=== PATIENT | female | born 1995 | race Caucasian/White ===

== ENCOUNTER 2018-06-02 12:03 | Inpatient (IN) | payer MEDICAID, OTHER ==
[2018-06-02] MEDS ORDERED: LIDOCAINE 1% (MPF) 5 ML VIAL INJ (14:30)
[2018-06-02] MEDS ORDERED: CEFTRIAXONE 1 GM INJ IM (14:30)
[2018-06-02 14:52] LABS: ADD MAN DIFF? NO
[2018-06-02] MEDS: SOD CHLORIDE 0.9% 1,000 ML IV ×2 (14:57→19:36)
[2018-06-02 14:58] LABS: ABNORMAL IP MESSAGE 1; BASOPHILS % 0.2 % (0.0-2.0); HEMATOCRIT 38.8 % (37.0-47.0); HEMOGLOBIN 13.3 g/dl (12.0-16.0); LYMPHOCYTES # 0.6 10^3/ul (0.8-2.9); MEAN CORPUSCULAR HEMOGLOBIN 28.9 pg (29.0-33.0); MEAN CORPUSCULAR HGB CONC 34.3 g/dl (32.0-37.0); MEAN CORPUSCULAR VOLUME 84.3 fl (82.0-101.0); MEAN PLATELET VOLUME 11.7 fl (7.4-10.4); MONOCYTE # 0.9 10^3/ul (0.3-0.9); MONOCYTES % 6.3 % (0.0-11.0); NEUTROPHIL # 12.9 10^3/ul (1.6-7.5); NEUTROPHILS % 88.9 % (39.0-77.0); PLATELET COUNT 158 10^3/UL (140-415); RED CELL DISTRIBUTION WIDTH 13.5 % (11.5-14.5)
[2018-06-02 14:58] LABS: WHITE BLOOD COUNT 14.5 10^3/ul (4.8-10.8)
[2018-06-02 15:01] LABS: POSITIVE DIFF @See below
[2018-06-02] MEDS: CEFTRIAXONE 1 GM/50 ML (PMX) 50 ML IVPB (15:09)
[2018-06-02 15:18] LABS: LACTIC ACID 1.8 mmol/L (0.5-2.0)
[2018-06-02 15:19] LABS: ADD UMIC YES; UR ASCORBIC ACID NEGATIVE (NEGATIVE); UR BACTERIA FEW /HPF (NONE SEEN); UR BILIRUBIN (Dip) NEGATIVE (NEGATIVE); UR BLOOD (Dip) 1+ mg/dL (NEGATIVE); UR CLARITY CLOUDY (CLEAR); UR COLOR YELLOW (YELLOW); UR GLUCOSE (Dip) NEGATIVE (NEGATIVE); UR KETONES (Dip) 2+ mg/dL (NEGATIVE); UR LEUKOCYTE ESTERASE (Dip) 3+ Leu/ul (NEGATIVE); UR MUCUS MODERATE /HPF (NONE SEEN); UR NITRITE (Dip) POSITIVE (NEGATIVE); UR NONSQUAMOUS EPITHELIAL CELL 1 /HPF (NONE SEEN); UR RBC 5 /HPF (0-5); UR SPECIFIC GRAVITY (Dip) 1.012 (1.003-1.030); UR SQUAMOUS EPITHELIAL CELL MODERATE /HPF (FEW); UR TOTAL PROTEIN (Dip) 1+ mg/dl (NEGATIVE); UR UROBILINOGEN (Dip) NEGATIVE (NEGATIVE); UR WBC 73 /HPF (0-5)
[2018-06-02 15:44] LABS: ALANINE AMINOTRANSFERASE 19 IU/L (13-69); ALBUMIN 4.4 g/dl (3.3-4.9); ALBUMIN/GLOBULIN RATIO 1.29; ALKALINE PHOSPHATASE 134 IU/L (42-121); ANION GAP 17 (5-13); ASPARTATE AMINO TRANSFERASE 20 IU/L (15-46); BILIRUBIN,INDIRECT 0.4 mg/dl (0-1.1); BILIRUBIN,TOTAL 0.4 mg/dl (0.2-1.3); BLOOD UREA NITROGEN 6 mg/dl (7-20); CALCIUM 9.7 mg/dl (8.4-10.2); CARBON DIOXIDE 22 mmol/L (21-31); CHLORIDE 97 mmol/L (97-110); CREATININE 0.54 mg/dl (0.44-1.00); Estimated GFR > 60 mL/min (>60); GLUCOSE 101 mg/dl (70-220); POTASSIUM 3.5 mmol/L (3.5-5.1); SODIUM 136 mmol/L (135-144); TOTAL PROTEIN 7.8 g/dl (6.1-8.1)
[2018-06-02] MEDS ORDERED: ONDANSETRON 4 MG INJ IV (17:30)
[2018-06-02] MEDS: ACETAMINOPHEN 325 MG TAB PO (18:36)
[2018-06-02] MEDS ORDERED: NACL 0.9% 3 ML SYG IV (19:00)
[2018-06-02] MEDS ORDERED: HYDROCODONE/APAP (5/325) TAB PO (19:00)
[2018-06-02] MEDS: morphine 2 MG INJ IV (19:36)
[2018-06-03] MEDS: ACETAMINOPHEN 325 MG TAB PO ×3 (02:08→23:15)
[2018-06-03] MEDS: morphine 2 MG INJ IV (03:22)
[2018-06-03] MEDS: SOD CHLORIDE 0.9% 1,000 ML IV (05:28)
[2018-06-03 06:21] LABS: ADD MAN DIFF? NO
[2018-06-03 06:22] LABS: BASOPHILS % 0.2 % (0.0-2.0); EOSINOPHILS % 0.1 % (0.0-7.0); HEMOGLOBIN 10.3 g/dl (12.0-16.0); LYMPHOCYTES # 0.8 10^3/ul (0.8-2.9); LYMPHOCYTES % 6.9 % (15.0-51.0); MEAN CORPUSCULAR HEMOGLOBIN 28.3 pg (29.0-33.0); MEAN CORPUSCULAR HGB CONC 33.2 g/dl (32.0-37.0); MEAN CORPUSCULAR VOLUME 85.2 fl (82.0-101.0); MEAN PLATELET VOLUME 12.2 fl (7.4-10.4); MONOCYTES % 8.7 % (0.0-11.0); NEUTROPHIL # 9.3 10^3/ul (1.6-7.5); NEUTROPHILS % 83.6 % (39.0-77.0); PLATELET COUNT 130 10^3/UL (140-415); RED BLOOD COUNT 3.64 10^6/ul (4.20-5.40); RED CELL DISTRIBUTION WIDTH 13.6 % (11.5-14.5)
[2018-06-03 06:22] LABS: WHITE BLOOD COUNT 11.1 10^3/ul (4.8-10.8)
[2018-06-03 07:04] LABS: ANION GAP 13 (5-13); BLOOD UREA NITROGEN 5 mg/dl (7-20); CALCIUM 8.7 mg/dl (8.4-10.2); CARBON DIOXIDE 18 mmol/L (21-31); CHLORIDE 106 mmol/L (97-110); CREATININE 0.49 mg/dl (0.44-1.00); Estimated GFR > 60 mL/min (>60); GLUCOSE 78 mg/dl (70-220); MAGNESIUM 2.1 mg/dl (1.7-2.5); PHOSPHORUS 3.6 mg/dl (2.5-4.9); POTASSIUM 3.1 mmol/L (3.5-5.1); SODIUM 137 mmol/L (135-144)
[2018-06-03 07:11] LABS: HEMOGLOBIN A1C 5.2 % (0-5.9)
[2018-06-03] MEDS: ONDANSETRON 4 MG INJ IV (09:08)
[2018-06-03] MEDS: POTASSIUM CHLORIDE (SR) 20 MEQ TAB PO (10:06)
[2018-06-03] MEDS: POTASSIUM CHLORIDE 40 MEQ in SOD CHLORIDE 0.9% 1,000 ML IV ×2 (10:55→23:27)
[2018-06-03] MEDS: CEFTRIAXONE 1 GM/50 ML (PMX) 50 ML IVPB (15:16)
[2018-06-04] MEDS: morphine 2 MG INJ IV (00:37)
[2018-06-04] MEDS: ONDANSETRON 4 MG INJ IV (00:37)
[2018-06-04] MEDS: POTASSIUM CHLORIDE 40 MEQ in SOD CHLORIDE 0.9% 1,000 ML IV (05:30)
[2018-06-04 06:10] LABS: ADD MAN DIFF? NO
[2018-06-04 06:13] LABS: ABNORMAL IP MESSAGE 1; BASOPHILS % 0.1 % (0.0-2.0); HEMATOCRIT 33.4 % (37.0-47.0); LYMPHOCYTES # 0.4 10^3/ul (0.8-2.9); LYMPHOCYTES % 6.3 % (15.0-51.0); MEAN CORPUSCULAR HEMOGLOBIN 27.9 pg (29.0-33.0); MEAN CORPUSCULAR HGB CONC 32.9 g/dl (32.0-37.0); MEAN CORPUSCULAR VOLUME 84.8 fl (82.0-101.0); MEAN PLATELET VOLUME 11.8 fl (7.4-10.4); MONOCYTE # 0.4 10^3/ul (0.3-0.9); MONOCYTES % 5.6 % (0.0-11.0); NEUTROPHIL # 6.1 10^3/ul (1.6-7.5); NEUTROPHILS % 87.6 % (39.0-77.0); PLATELET COUNT 168 10^3/UL (140-415); RED BLOOD COUNT 3.94 10^6/ul (4.20-5.40); RED CELL DISTRIBUTION WIDTH 13.4 % (11.5-14.5)
[2018-06-04 06:13] LABS: WHITE BLOOD COUNT 6.9 10^3/ul (4.8-10.8)
[2018-06-04 06:26] LABS: POSITIVE DIFF @See below
[2018-06-04 07:39] LABS: ANION GAP 9 (5-13); BLOOD UREA NITROGEN 3 mg/dl (7-20); CALCIUM 8.6 mg/dl (8.4-10.2); CARBON DIOXIDE 21 mmol/L (21-31); CHLORIDE 104 mmol/L (97-110); CREATININE 0.44 mg/dl (0.44-1.00); Estimated GFR > 60 mL/min (>60); GLUCOSE 160 mg/dl (70-220); POTASSIUM 3.8 mmol/L (3.5-5.1); SODIUM 134 mmol/L (135-144)
[2018-06-04] MEDS: CEFTRIAXONE 1 GM/50 ML (PMX) 50 ML IVPB (10:06)
== END 2018-06-04 11:55 | disposition home or self-care (01) | DRG 832 ==
LOC: 2NE 18:52 → FTE 12:03 → 2NE 17:22
DX: O98.812 Other maternal infectious and parasitic diseases complicating pregnancy, second trimester (principal); O23.02 Infections of kidney in pregnancy, second trimester; B96.20 Unspecified Escherichia coli [E. coli] as the cause of diseases classified elsewhere; E87.6 Hypokalemia; Z3A.16 16 weeks gestation of pregnancy
CPT/HCPCS: 36415; 76805; 80048; 80053; 81001; 83036; 83605; 83735; 84100; 85025; 87040; 87086; 96361; 96374; 99291-25

== ENCOUNTER 2018-06-23 20:53 | Inpatient (IN) | payer MEDICAID ==
[2018-06-23] MEDS: ACETAMINOPHEN 325 MG TAB PO (22:34)
[2018-06-23] MEDS: SODIUM CHLORIDE 0.9% 1L BAG IV* (22:35)
[2018-06-23 22:43] LABS: ADD MAN DIFF? NO
[2018-06-23 22:45] LABS: WHITE BLOOD COUNT 16.8 10^3/ul (4.8-10.8)
[2018-06-23 22:45] LABS: BASOPHILS % 0.2 % (0.0-2.0); HEMATOCRIT 36.9 % (37.0-47.0); HEMOGLOBIN 12.4 g/dl (12.0-16.0); LYMPHOCYTES # 0.8 10^3/ul (0.8-2.9); LYMPHOCYTES % 4.9 % (15.0-51.0); MEAN CORPUSCULAR HEMOGLOBIN 28.1 pg (29.0-33.0); MEAN CORPUSCULAR HGB CONC 33.6 g/dl (32.0-37.0); MEAN CORPUSCULAR VOLUME 83.7 fl (82.0-101.0); MEAN PLATELET VOLUME 11.7 fl (7.4-10.4); MONOCYTE # 1.2 10^3/ul (0.3-0.9); MONOCYTES % 7.2 % (0.0-11.0); NEUTROPHIL # 14.6 10^3/ul (1.6-7.5); PLATELET COUNT 167 10^3/UL (140-415); RED BLOOD COUNT 4.41 10^6/ul (4.20-5.40); RED CELL DISTRIBUTION WIDTH 13.9 % (11.5-14.5)
[2018-06-23 22:54] LABS: ADD UMIC YES; UR ASCORBIC ACID NEGATIVE (NEGATIVE); UR BACTERIA FEW /HPF (NONE SEEN); UR BILIRUBIN (Dip) NEGATIVE (NEGATIVE); UR BLOOD (Dip) 1+ mg/dL (NEGATIVE); UR CLARITY CLOUDY (CLEAR); UR COLOR AMBER (YELLOW); UR GLUCOSE (Dip) NEGATIVE (NEGATIVE); UR KETONES (Dip) NEGATIVE (NEGATIVE); UR LEUKOCYTE ESTERASE (Dip) 3+ Leu/ul (NEGATIVE); UR NITRITE (Dip) NEGATIVE (NEGATIVE); UR NONSQUAMOUS EPITHELIAL CELL 1 /HPF (NONE SEEN); UR RBC 5 /HPF (0-5); UR SPECIFIC GRAVITY (Dip) 1.005 (1.003-1.030); UR SQUAMOUS EPITHELIAL CELL FEW /HPF (FEW); UR TOTAL PROTEIN (Dip) 1+ mg/dl (NEGATIVE); UR UROBILINOGEN (Dip) 2+ mg/dL (NEGATIVE); UR WBC > 182 /HPF (0-5)
[2018-06-23 23:03] LABS: ALANINE AMINOTRANSFERASE 23 IU/L (13-69); ALBUMIN 4.4 g/dl (3.3-4.9); ALBUMIN/GLOBULIN RATIO 1.07; ALKALINE PHOSPHATASE 167 IU/L (42-121); ANION GAP 14 (5-13); ASPARTATE AMINO TRANSFERASE 25 IU/L (15-46); BILIRUBIN,INDIRECT 0.6 mg/dl (0-1.1); BILIRUBIN,TOTAL 0.6 mg/dl (0.2-1.3); BLOOD UREA NITROGEN 5 mg/dl (7-20); CALCIUM 9.6 mg/dl (8.4-10.2); CARBON DIOXIDE 24 mmol/L (21-31); CHLORIDE 96 mmol/L (97-110); CREATININE 0.68 mg/dl (0.44-1.00); Estimated GFR > 60 mL/min (>60); GLUCOSE 152 mg/dl (70-220); POTASSIUM 3.4 mmol/L (3.5-5.1); SODIUM 134 mmol/L (135-144); TOTAL PROTEIN 8.5 g/dl (6.1-8.1)
[2018-06-23] MEDS: CEFTRIAXONE 1 GM/50 ML (PMX) 50 ML IVPB (23:07)
[2018-06-24] MEDS ORDERED: NACL 0.9% 3 ML SYG IV (00:30)
[2018-06-24] MEDS ORDERED: DOCUSATE SODIUM 100 MG CAP PO (00:30)
[2018-06-24] MEDS: SOD CHLORIDE 0.9% 1,000 ML IV ×4 (01:33→20:16)
[2018-06-24] MEDS: ACETAMINOPHEN 325 MG TAB PO (03:26)
[2018-06-24] MEDS: BISACODYL (EC) 5 MG TAB PO (03:26)
[2018-06-24 03:28] LABS: LACTIC ACID 1.2 mmol/L (0.5-2.0)
[2018-06-24 06:01] LABS: ADD MAN DIFF? NO
[2018-06-24 06:07] LABS: ABNORMAL IP MESSAGE 1; BASOPHILS % 0.1 % (0.0-2.0); HEMATOCRIT 27.4 % (37.0-47.0); HEMOGLOBIN 9.4 g/dl (12.0-16.0); LYMPHOCYTES # 0.5 10^3/ul (0.8-2.9); MEAN CORPUSCULAR HEMOGLOBIN 28.2 pg (29.0-33.0); MEAN CORPUSCULAR HGB CONC 34.3 g/dl (32.0-37.0); MEAN CORPUSCULAR VOLUME 82.3 fl (82.0-101.0); MEAN PLATELET VOLUME 12.1 fl (7.4-10.4); MONOCYTE # 1.3 10^3/ul (0.3-0.9); MONOCYTES % 8.1 % (0.0-11.0); NEUTROPHIL # 13.7 10^3/ul (1.6-7.5); NEUTROPHILS % 88.3 % (39.0-77.0); PLATELET COUNT 138 10^3/UL (140-415); RED BLOOD COUNT 3.33 10^6/ul (4.20-5.40)
[2018-06-24 06:07] LABS: WHITE BLOOD COUNT 15.5 10^3/ul (4.8-10.8)
[2018-06-24 06:09] LABS: POSITIVE DIFF @See below
[2018-06-24 06:43] LABS: ALANINE AMINOTRANSFERASE 27 IU/L (13-69); ALBUMIN 2.9 g/dl (3.3-4.9); ALBUMIN/GLOBULIN RATIO 1.16; ALKALINE PHOSPHATASE 108 IU/L (42-121); ANION GAP 12 (5-13); ASPARTATE AMINO TRANSFERASE 19 IU/L (15-46); BILIRUBIN,INDIRECT 0.4 mg/dl (0-1.1); BILIRUBIN,TOTAL 0.4 mg/dl (0.2-1.3); BLOOD UREA NITROGEN 4 mg/dl (7-20); CALCIUM 8.3 mg/dl (8.4-10.2); CARBON DIOXIDE 21 mmol/L (21-31); CHLORIDE 104 mmol/L (97-110); CREATININE 0.49 mg/dl (0.44-1.00); Estimated GFR > 60 mL/min (>60); GLUCOSE 132 mg/dl (70-220); POTASSIUM 3.2 mmol/L (3.5-5.1); SODIUM 137 mmol/L (135-144); TOTAL PROTEIN 5.4 g/dl (6.1-8.1)
[2018-06-24] MEDS: AZITHROMYCIN 250 MG TAB PO (08:49)
[2018-06-24] MEDS: POTASSIUM CHLORIDE (SR) 20 MEQ TAB PO ×2 (08:49→21:09)
[2018-06-24] MEDS: CEFTRIAXONE 1 GM/50 ML (PMX) 50 ML IVPB (22:53)
[2018-06-25 05:17] LABS: ADD MAN DIFF? NO
[2018-06-25 05:22] LABS: BASOPHILS % 0.2 % (0.0-2.0); EOSINOPHILS % 0.2 % (0.0-7.0); HEMATOCRIT 27.6 % (37.0-47.0); HEMOGLOBIN 9.2 g/dl (12.0-16.0); LYMPHOCYTES # 1.3 10^3/ul (0.8-2.9); LYMPHOCYTES % 11.8 % (15.0-51.0); MEAN CORPUSCULAR HEMOGLOBIN 28.6 pg (29.0-33.0); MEAN CORPUSCULAR HGB CONC 33.3 g/dl (32.0-37.0); MEAN CORPUSCULAR VOLUME 85.7 fl (82.0-101.0); MEAN PLATELET VOLUME 11.6 fl (7.4-10.4); MONOCYTE # 0.8 10^3/ul (0.3-0.9); MONOCYTES % 7.5 % (0.0-11.0); NEUTROPHIL # 8.5 10^3/ul (1.6-7.5); NEUTROPHILS % 79.6 % (39.0-77.0); PLATELET COUNT 146 10^3/UL (140-415); RED BLOOD COUNT 3.22 10^6/ul (4.20-5.40); RED CELL DISTRIBUTION WIDTH 14.2 % (11.5-14.5)
[2018-06-25 05:22] LABS: WHITE BLOOD COUNT 10.7 10^3/ul (4.8-10.8)
[2018-06-25 06:07] LABS: ALANINE AMINOTRANSFERASE 20 IU/L (13-69); ALBUMIN/GLOBULIN RATIO 0.93; ALKALINE PHOSPHATASE 131 IU/L (42-121); ANION GAP 10 (5-13); ASPARTATE AMINO TRANSFERASE 16 IU/L (15-46); BILIRUBIN,INDIRECT 0.2 mg/dl (0-1.1); BILIRUBIN,TOTAL 0.2 mg/dl (0.2-1.3); BLOOD UREA NITROGEN 3 mg/dl (7-20); CALCIUM 8.9 mg/dl (8.4-10.2); CARBON DIOXIDE 23 mmol/L (21-31); CHLORIDE 106 mmol/L (97-110); CREATININE 0.52 mg/dl (0.44-1.00); Estimated GFR > 60 mL/min (>60); GLUCOSE 107 mg/dl (70-220); POTASSIUM 3.6 mmol/L (3.5-5.1); SODIUM 139 mmol/L (135-144); TOTAL PROTEIN 6.2 g/dl (6.1-8.1)
[2018-06-25] MEDS: AZITHROMYCIN 250 MG TAB PO (09:09)
[2018-06-25] MEDS: GUAIFENESIN 20 MG/ML 5ML CUP PO (12:27)
[2018-06-25] MEDS: PRENATAL VITAMIN PO (12:27)
[2018-06-25] MEDS: ONDANSETRON 4 MG INJ IV (12:27)
[2018-06-25] MEDS: MEROPENEM 1 GM/50ML(PMX) 50 ML IVPB (23:10)
[2018-06-26 05:57] LABS: ADD MAN DIFF? NO
[2018-06-26] MEDS: MEROPENEM 1 GM/50ML(PMX) 50 ML IVPB ×3 (05:57→22:07)
[2018-06-26 06:05] LABS: BASOPHILS % 0.3 % (0.0-2.0); EOSINOPHILS # 0.1 10^3/ul (0.0-0.5); EOSINOPHILS % 1.2 % (0.0-7.0); HEMATOCRIT 28.5 % (37.0-47.0); HEMOGLOBIN 9.4 g/dl (12.0-16.0); LYMPHOCYTES # 1.4 10^3/ul (0.8-2.9); LYMPHOCYTES % 19.1 % (15.0-51.0); MEAN CORPUSCULAR HEMOGLOBIN 28.2 pg (29.0-33.0); MEAN CORPUSCULAR VOLUME 85.6 fl (82.0-101.0); MEAN PLATELET VOLUME 11.5 fl (7.4-10.4); MONOCYTE # 0.6 10^3/ul (0.3-0.9); MONOCYTES % 7.9 % (0.0-11.0); NEUTROPHIL # 5.1 10^3/ul (1.6-7.5); NEUTROPHILS % 71.1 % (39.0-77.0); PLATELET COUNT 184 10^3/UL (140-415); RED BLOOD COUNT 3.33 10^6/ul (4.20-5.40); RED CELL DISTRIBUTION WIDTH 14.2 % (11.5-14.5)
[2018-06-26 06:05] LABS: WHITE BLOOD COUNT 7.2 10^3/ul (4.8-10.8)
[2018-06-26 07:13] LABS: ANION GAP 10 (5-13); CARBON DIOXIDE 26 mmol/L (21-31); CHLORIDE 103 mmol/L (97-110); POTASSIUM 3.6 mmol/L (3.5-5.1); SODIUM 139 mmol/L (135-144)
[2018-06-26 07:16] LABS: ALANINE AMINOTRANSFERASE 19 IU/L (13-69); ALBUMIN 3.1 g/dl (3.3-4.9); ALBUMIN/GLOBULIN RATIO 1.03; ALKALINE PHOSPHATASE 126 IU/L (42-121); ASPARTATE AMINO TRANSFERASE 18 IU/L (15-46); BILIRUBIN,INDIRECT 0.3 mg/dl (0-1.1); BILIRUBIN,TOTAL 0.3 mg/dl (0.2-1.3); BLOOD UREA NITROGEN 4 mg/dl (7-20); CALCIUM 9.2 mg/dl (8.4-10.2); CREATININE 0.52 mg/dl (0.44-1.00); Estimated GFR > 60 mL/min (>60); GLUCOSE 90 mg/dl (70-220); TOTAL PROTEIN 6.1 g/dl (6.1-8.1)
[2018-06-26] MEDS: AZITHROMYCIN 250 MG TAB PO (08:32)
[2018-06-26] MEDS: PRENATAL VITAMIN PO (08:32)
[2018-06-27] MEDS: MEROPENEM 1 GM/50ML(PMX) 50 ML IVPB ×2 (05:10→14:50)
[2018-06-27 05:59] LABS: ADD MAN DIFF? NO
[2018-06-27 06:04] LABS: WHITE BLOOD COUNT 7.4 10^3/ul (4.8-10.8)
[2018-06-27 06:04] LABS: BASOPHILS % 0.3 % (0.0-2.0); EOSINOPHILS # 0.1 10^3/ul (0.0-0.5); EOSINOPHILS % 1.5 % (0.0-7.0); HEMATOCRIT 29.4 % (37.0-47.0); HEMOGLOBIN 9.6 g/dl (12.0-16.0); LYMPHOCYTES # 1.5 10^3/ul (0.8-2.9); LYMPHOCYTES % 19.7 % (15.0-51.0); MEAN CORPUSCULAR HEMOGLOBIN 28.1 pg (29.0-33.0); MEAN CORPUSCULAR HGB CONC 32.7 g/dl (32.0-37.0); MEAN PLATELET VOLUME 11.1 fl (7.4-10.4); MONOCYTE # 0.4 10^3/ul (0.3-0.9); MONOCYTES % 5.7 % (0.0-11.0); NEUTROPHIL # 5.4 10^3/ul (1.6-7.5); NEUTROPHILS % 72.3 % (39.0-77.0); PLATELET COUNT 205 10^3/UL (140-415); RED BLOOD COUNT 3.42 10^6/ul (4.20-5.40); RED CELL DISTRIBUTION WIDTH 14.3 % (11.5-14.5)
[2018-06-27 06:43] LABS: ALANINE AMINOTRANSFERASE 22 IU/L (13-69); ALBUMIN 3.1 g/dl (3.3-4.9); ALBUMIN/GLOBULIN RATIO 1.03; ALKALINE PHOSPHATASE 133 IU/L (42-121); ANION GAP 11 (5-13); ASPARTATE AMINO TRANSFERASE 23 IU/L (15-46); BILIRUBIN,INDIRECT 0.3 mg/dl (0-1.1); BILIRUBIN,TOTAL 0.3 mg/dl (0.2-1.3); BLOOD UREA NITROGEN 4 mg/dl (7-20); CALCIUM 9.2 mg/dl (8.4-10.2); CARBON DIOXIDE 25 mmol/L (21-31); CHLORIDE 105 mmol/L (97-110); CREATININE 0.43 mg/dl (0.44-1.00); Estimated GFR > 60 mL/min (>60); GLUCOSE 81 mg/dl (70-220); POTASSIUM 3.9 mmol/L (3.5-5.1); SODIUM 141 mmol/L (135-144); TOTAL PROTEIN 6.1 g/dl (6.1-8.1)
[2018-06-27] MEDS: AZITHROMYCIN 250 MG TAB PO (09:16)
[2018-06-27] MEDS: PRENATAL VITAMIN PO (09:17)
== END 2018-06-27 18:40 | disposition home health service (06) | DRG 831 ==
LOC: 2NE 06-25 10:43 → FTE 20:53
DX: O98.812 Other maternal infectious and parasitic diseases complicating pregnancy, second trimester (principal); A41.9 Sepsis, unspecified organism; N10 Acute pyelonephritis; Z3A.19 19 weeks gestation of pregnancy; O99.512 Diseases of the respiratory system complicating pregnancy, second trimester; J06.9 Acute upper respiratory infection, unspecified; B96.20 Unspecified Escherichia coli [E. coli] as the cause of diseases classified elsewhere; Z16.12 Extended spectrum beta lactamase (ESBL) resistance
CPT/HCPCS: 36415; 76775; 76805; 80053; 81001; 81025; 83605; 85025; 87040; 87070; 87081; 87086; 87275; 87276; 87279; 87280; 87400; 96365; 99285-25

== ENCOUNTER 2018-11-03 13:52 | Outpatient (CLI) | payer OTHER, MEDICAID ==
[2018-11-03 15:19] LABS: ADD UMIC YES; UR ASCORBIC ACID 20 mg/dL (NEGATIVE); UR BACTERIA FEW /HPF (NONE SEEN); UR BILIRUBIN (Dip) NEGATIVE (NEGATIVE); UR BLOOD (Dip) NEGATIVE (NEGATIVE); UR CLARITY SLIGHTLY CLOUDY (CLEAR); UR COLOR YELLOW (YELLOW); UR GLUCOSE (Dip) NEGATIVE (NEGATIVE); UR KETONES (Dip) NEGATIVE (NEGATIVE); UR LEUKOCYTE ESTERASE (Dip) TRACE Leu/ul (NEGATIVE); UR MUCUS FEW /HPF (NONE SEEN); UR NITRITE (Dip) NEGATIVE (NEGATIVE); UR RBC 1 /HPF (0-5); UR SPECIFIC GRAVITY (Dip) 1.015 (1.003-1.030); UR SQUAMOUS EPITHELIAL CELL MODERATE /HPF (FEW); UR TOTAL PROTEIN (Dip) NEGATIVE (NEGATIVE); UR UROBILINOGEN (Dip) NEGATIVE (NEGATIVE); UR WBC 3 /HPF (0-5)
[2018-11-03 15:30] LABS: WHITE BLOOD COUNT 8.5 10^3/ul (4.8-10.8)
[2018-11-03 15:30] LABS: ABNORMAL IP MESSAGE 1; BASOPHILS % 0.4 % (0.0-2.0); EOSINOPHILS # 0.1 10^3/ul (0.0-0.5); EOSINOPHILS % 0.7 % (0.0-7.0); HEMATOCRIT 35.5 % (37.0-47.0); HEMOGLOBIN 11.8 g/dl (12.0-16.0); LYMPHOCYTES # 1.3 10^3/ul (0.8-2.9); MEAN CORPUSCULAR HEMOGLOBIN 27.8 pg (29.0-33.0); MEAN CORPUSCULAR HGB CONC 33.2 g/dl (32.0-37.0); MEAN CORPUSCULAR VOLUME 83.5 fl (82.0-101.0); MONOCYTE # 0.5 10^3/ul (0.3-0.9); MONOCYTES % 5.6 % (0.0-11.0); NEUTROPHIL # 6.6 10^3/ul (1.6-7.5); NEUTROPHILS % 77.9 % (39.0-77.0); RED BLOOD COUNT 4.25 10^6/ul (4.20-5.40); RED CELL DISTRIBUTION WIDTH 13.5 % (11.5-14.5)
[2018-11-03 15:40] LABS: MEAN PLATELET VOLUME 13.4 fl (7.4-10.4); POSITIVE DIFF @See below
[2018-11-03 15:45] LABS: ALANINE AMINOTRANSFERASE 19 IU/L (13-69); ALBUMIN 3.4 g/dl (3.3-4.9); ALBUMIN/GLOBULIN RATIO 1.09; ALKALINE PHOSPHATASE 166 IU/L (42-121); ANION GAP 8 (5-13); ASPARTATE AMINO TRANSFERASE 19 IU/L (15-46); BILIRUBIN,INDIRECT 0.3 mg/dl (0-1.1); BILIRUBIN,TOTAL 0.3 mg/dl (0.2-1.3); BLOOD UREA NITROGEN 8 mg/dl (7-20); CALCIUM 8.9 mg/dl (8.4-10.2); CARBON DIOXIDE 22 mmol/L (21-31); CHLORIDE 108 mmol/L (97-110); CREATININE 0.59 mg/dl (0.44-1.00); Estimated GFR > 60 mL/min (>60); GLUCOSE 108 mg/dl (70-220); POTASSIUM 3.8 mmol/L (3.5-5.1); PROTIME 12.3 Sec (11.9-14.9); SODIUM 138 mmol/L (135-144); TOTAL PROTEIN 6.5 g/dl (6.1-8.1); URIC ACID 7.2 mg/dl (3.1-7.9)
[2018-11-03 15:46] LABS: PARTIAL THROMBOPLASTIN TIME 24.6 Sec (23.0-35.0)
[2018-11-03 15:52] LABS: PLATELET COUNT 123 10^3/UL (140-415)
[2018-11-03] MEDS: LACTATED RINGER'S 1,000 ML IV (16:54)
== END 2018-11-03 17:55 | disposition home or self-care (01) ==
LOC: OBT 13:52 → L-D 13:54 → OBT 17:55
DX: O26.843 Uterine size-date discrepancy, third trimester (principal); O13.3 Gestational [pregnancy-induced] hypertension without significant proteinuria, third trimester; Z3A.38 38 weeks gestation of pregnancy
CPT/HCPCS: 76815; 76818; 80053; 81001; 84560; 85025; 85384; 85610; 85730

== ENCOUNTER 2018-11-04 19:55 | Outpatient (CLI) | payer OTHER ==
[2018-11-04 20:35] LABS: ADD UMIC YES; UR ASCORBIC ACID NEGATIVE (NEGATIVE); UR BACTERIA FEW /HPF (NONE SEEN); UR BILIRUBIN (Dip) NEGATIVE (NEGATIVE); UR BLOOD (Dip) NEGATIVE (NEGATIVE); UR CLARITY SLIGHTLY CLOUDY (CLEAR); UR COLOR YELLOW (YELLOW); UR GLUCOSE (Dip) NEGATIVE (NEGATIVE); UR KETONES (Dip) NEGATIVE (NEGATIVE); UR LEUKOCYTE ESTERASE (Dip) 1+ Leu/ul (NEGATIVE); UR NITRITE (Dip) NEGATIVE (NEGATIVE); UR RBC 6 /HPF (0-5); UR SPECIFIC GRAVITY (Dip) 1.006 (1.003-1.030); UR SQUAMOUS EPITHELIAL CELL FEW /HPF (FEW); UR TOTAL PROTEIN (Dip) NEGATIVE (NEGATIVE); UR UROBILINOGEN (Dip) NEGATIVE (NEGATIVE); UR WBC 8 /HPF (0-5)
== END 2018-11-04 21:37 | disposition home or self-care (01) ==
LOC: OBT 19:55 → L-D 19:56 → OBT 21:37
DX: O36.8330 Maternal care for abnormalities of the fetal heart rate or rhythm, third trimester, not applicable or unspecified (principal); O13.3 Gestational [pregnancy-induced] hypertension without significant proteinuria, third trimester; Z3A.38 38 weeks gestation of pregnancy
CPT/HCPCS: 76818; 81001

== ENCOUNTER 2018-11-06 08:21 | Outpatient (CLI) | payer OTHER ==
[2018-11-06 09:09] LABS: COLLECTION PERIOD 24 hrs
[2018-11-06 09:40] LABS: CREATININE 0.48 mg/dl (0.44-1.00)
[2018-11-06 09:42] LABS: COLLECTION PERIOD 24 hrs; CREATININE CLEARANCE 286.7 mls/min (84.0-162.0); CREATININE,URINE RANDOM 21.42 mg/dl (20-320); SCRET 0.48 mg/dl (0.44-1.00); VOLUME 9250 ml/24hrs; VOLUME 9250 mls
== END 2018-11-06 10:22 | disposition left against medical advice (07) ==
LOC: OBT 08:21 → L-D 08:21 → OBT 10:22
DX: O13.3 Gestational [pregnancy-induced] hypertension without significant proteinuria, third trimester (principal); O41.92X0 Disorder of amniotic fluid and membranes, unspecified, second trimester, not applicable or unspecified; Z3A.38 38 weeks gestation of pregnancy
CPT/HCPCS: 76818; 82565; 82575; 84156

== ENCOUNTER 2018-11-10 08:43 | Inpatient (IN) | payer OTHER ==
[2018-11-10] MEDS ORDERED: CARBOPROST 250 MCG INJ IM ×2 (09:30→14:00)
[2018-11-10] MEDS ORDERED: BUTORPHANOL 2 MG INJ IV (09:30)
[2018-11-10] MEDS ORDERED: OXYTOCIN 30 UNITS/LR 500 ML IV ×4 (09:30→14:00)
[2018-11-10] MEDS ORDERED: METHYLERGONOVINE 0.2 MG INJ IM ×2 (09:30→14:00)
[2018-11-10] MEDS ORDERED: LIDOCAINE 1% (MPF) 30 ML INJ INJ (09:30)
[2018-11-10] MEDS ORDERED: IBUPROFEN 600 MG TAB PO (09:30)
[2018-11-10] MEDS ORDERED: OXYCODONE/ASPIRIN (4.88/325) TAB PO ×2 (09:30→14:00)
[2018-11-10] MEDS ORDERED: MISOPROSTOL 200 MCG TAB PR ×2 (09:30→14:00)
[2018-11-10 09:48] LABS: ADD MAN DIFF? NO
[2018-11-10] MEDS: LACTATED RINGER'S 1,000 ML IV (09:48)
[2018-11-10] MEDS: BUTORPHANOL 2 MG INJ IV (09:48)
[2018-11-10] MEDS: AMPICILLIN 2 GM/NS (PMX) 100 ML IV (09:48)
[2018-11-10 09:50] LABS: WHITE BLOOD COUNT 10.5 10^3/ul (4.8-10.8)
[2018-11-10 09:50] LABS: BASOPHILS % 0.4 % (0.0-2.0); EOSINOPHILS # 0.1 10^3/ul (0.0-0.5); EOSINOPHILS % 0.9 % (0.0-7.0); HEMATOCRIT 37.3 % (37.0-47.0); HEMOGLOBIN 12.4 g/dl (12.0-16.0); LYMPHOCYTES % 19.3 % (15.0-51.0); MEAN CORPUSCULAR HEMOGLOBIN 27.7 pg (29.0-33.0); MEAN CORPUSCULAR HGB CONC 33.2 g/dl (32.0-37.0); MEAN CORPUSCULAR VOLUME 83.4 fl (82.0-101.0); MONOCYTE # 0.6 10^3/ul (0.3-0.9); MONOCYTES % 5.7 % (0.0-11.0); NEUTROPHIL # 7.7 10^3/ul (1.6-7.5); NEUTROPHILS % 73.1 % (39.0-77.0); PLATELET COUNT 118 10^3/UL (140-415); RED BLOOD COUNT 4.47 10^6/ul (4.20-5.40); RED CELL DISTRIBUTION WIDTH 13.6 % (11.5-14.5)
[2018-11-10 10:00] LABS: ADD UMIC YES; UR ASCORBIC ACID NEGATIVE (NEGATIVE); UR BILIRUBIN (Dip) NEGATIVE (NEGATIVE); UR BLOOD (Dip) 1+ mg/dL (NEGATIVE); UR CLARITY SLIGHTLY CLOUDY (CLEAR); UR COLOR YELLOW (YELLOW); UR GLUCOSE (Dip) NEGATIVE (NEGATIVE); UR KETONES (Dip) NEGATIVE (NEGATIVE); UR LEUKOCYTE ESTERASE (Dip) TRACE Leu/ul (NEGATIVE); UR NITRITE (Dip) NEGATIVE (NEGATIVE); UR RBC 3 /HPF (0-5); UR SPECIFIC GRAVITY (Dip) 1.011 (1.003-1.030); UR SQUAMOUS EPITHELIAL CELL FEW /HPF (FEW); UR TOTAL PROTEIN (Dip) NEGATIVE (NEGATIVE); UR UROBILINOGEN (Dip) NEGATIVE (NEGATIVE); UR WBC 8 /HPF (0-5)
[2018-11-10 10:09] LABS: INR 0.86; PROTIME 11.8 Sec (11.9-14.9); PT RATIO 0.9
[2018-11-10 10:10] LABS: PARTIAL THROMBOPLASTIN TIME 25.8 Sec (23.0-35.0)
[2018-11-10 10:18] LABS: ALANINE AMINOTRANSFERASE 17 IU/L (13-69); ALBUMIN 3.7 g/dl (3.3-4.9); ALKALINE PHOSPHATASE 197 IU/L (42-121); ANION GAP 9 (5-13); ASPARTATE AMINO TRANSFERASE 25 IU/L (15-46); BILIRUBIN,INDIRECT 0.4 mg/dl (0-1.1); BILIRUBIN,TOTAL 0.4 mg/dl (0.2-1.3); BLOOD UREA NITROGEN 8 mg/dl (7-20); CALCIUM 9.4 mg/dl (8.4-10.2); CARBON DIOXIDE 21 mmol/L (21-31); CHLORIDE 108 mmol/L (97-110); CREATININE 0.63 mg/dl (0.44-1.00); Estimated GFR > 60 mL/min (>60); GLUCOSE 83 mg/dl (70-220); POTASSIUM 4.2 mmol/L (3.5-5.1); SODIUM 138 mmol/L (135-144); URIC ACID 7.2 mg/dl (3.1-7.9)
[2018-11-10 10:19] LABS: ALBUMIN/GLOBULIN RATIO 1.12
[2018-11-10 14:00] LABS: AMPHETAMINE/METHAMPHETAMINE Negative (NEGATIVE); BARBITURATES Negative (NEGATIVE); BENZODIAZEPINES Negative (NEGATIVE); CANNABINOIDS Negative (NEGATIVE); COCAINE Negative (NEGATIVE); OPIATES Negative (NEGATIVE)
[2018-11-10] MEDS ORDERED: ONDANSETRON 4 MG INJ IV (14:00)
[2018-11-10] MEDS ORDERED: ACETAMINOPHEN 325 MG TAB PO (14:00)
[2018-11-10] MEDS ORDERED: NACL 0.9% 3 ML SYG IV (14:00)
[2018-11-10] MEDS: OXYTOCIN 30 UNITS/LR 500 ML IV (14:23)
[2018-11-10] MEDS: AMPICILLIN 1 GM/NS (PMX) 50 ML IV (15:00)
[2018-11-10] MEDS: WITCH HAZEL/GLYCERIN PAD PR (15:48)
[2018-11-10] MEDS: BENZOCAINE 20% 56 ML SPRAY TOP (15:48)
[2018-11-10] MEDS: LANOLIN HPA 1 PKT TOP (15:48)
[2018-11-10] MEDS: OXYCODONE/ASPIRIN (4.88/325) TAB PO (15:49)
[2018-11-10] MEDS: IBUPROFEN 600 MG TAB PO ×2 (18:00→23:40)
[2018-11-10] MEDS: SENNA/DOCUSATE NA (8.6MG/50MG) TAB PO (21:02)
[2018-11-10 21:56] LABS: RAPID PLASMA REAGIN NONREACTIVE (NR)
[2018-11-11] MEDS: IBUPROFEN 600 MG TAB PO ×3 (05:52→17:43)
[2018-11-11 06:48] LABS: ADD MAN DIFF? NO
[2018-11-11 06:50] LABS: BASOPHILS % 0.2 % (0.0-2.0); EOSINOPHILS % 0.2 % (0.0-7.0); HEMATOCRIT 31.9 % (37.0-47.0); HEMOGLOBIN 10.5 g/dl (12.0-16.0); LYMPHOCYTES # 2.3 10^3/ul (0.8-2.9); LYMPHOCYTES % 17.8 % (15.0-51.0); MEAN CORPUSCULAR HEMOGLOBIN 28.1 pg (29.0-33.0); MEAN CORPUSCULAR HGB CONC 32.9 g/dl (32.0-37.0); MEAN CORPUSCULAR VOLUME 85.3 fl (82.0-101.0); MEAN PLATELET VOLUME 12.9 fl (7.4-10.4); MONOCYTE # 0.6 10^3/ul (0.3-0.9); NEUTROPHIL # 9.8 10^3/ul (1.6-7.5); NEUTROPHILS % 76.3 % (39.0-77.0); PLATELET COUNT 112 10^3/UL (140-415); RED BLOOD COUNT 3.74 10^6/ul (4.20-5.40); RED CELL DISTRIBUTION WIDTH 13.8 % (11.5-14.5)
[2018-11-11 06:50] LABS: WHITE BLOOD COUNT 12.8 10^3/ul (4.8-10.8)
[2018-11-11 07:17] LABS: AADO2 Cord Arterial 51.3 mmHg; Arterial Cord Blood pCO2 63.1 mmHG (25-50); CBA Base Excess -10.2 mmol/L; CBA COHb 0.5 %; CBA Oxygen Sat 40.7 mmHG; CBA Total Hemglobin 17.8 g/dl; Cord Blood Arterial pO2 22.9 mmHG (15.0-45.0); Fraction OxyHgb Cord Arterial 39.8 %; MODE ROOM AIR; MetHgb Cord Arterial 1.6 %; Sample Type CBA; Site CORD
[2018-11-11 07:18] LABS: CBV Base Excess -10.2 mmol/L; CBV COHb 0.7 %; CBV Oxygen Sat 43.5 mmHG; CBV Total Hemglobin 17.6 g/dl; Cord Blood Venous AADO2 60.7 mmHg; Cord Blood Venous pO2 23.2 mmHG (15.0-45.0); Fraction OxyHgb Cord Venous 42.5 %; MODE ROOM AIR; MetHgb Cord Venous 1.7 %; Sample Type CBV; Site CORD
[2018-11-11] MEDS: SENNA/DOCUSATE NA (8.6MG/50MG) TAB PO ×2 (08:33→21:00)
[2018-11-12] MEDS: IBUPROFEN 600 MG TAB PO ×3 (00:12→11:40)
[2018-11-12] MEDS: SENNA/DOCUSATE NA (8.6MG/50MG) TAB PO (09:27)
[2018-11-12] MEDS: BENZOCAINE 20% 56 ML SPRAY TOP (09:27)
[2018-11-12] MEDS: WITCH HAZEL/GLYCERIN PAD PR (09:27)
== END 2018-11-12 15:30 | disposition home or self-care (01) | DRG 807 ==
LOC: OBT 08:43 → L-D 08:44 → OBT 09:44 → L-D 09:00 → PP1 15:07
PROC: 10E0XZZ Delivery of Products of Conception, External Approach (ICD-10-PCS; principal; 2018-11-10)
PROC: 0HQ9XZZ Repair Perineum Skin, External Approach (ICD-10-PCS; 2018-11-10)
DX: O69.81X0 Labor and delivery complicated by cord around neck, without compression, not applicable or unspecified (principal); Z37.0 Single live birth; O70.0 First degree perineal laceration during delivery; Z3A.39 39 weeks gestation of pregnancy
CPT/HCPCS: 36415; 36600; 76815; 80053; 80307; 81001; 82803; 84560; 85025; 85610; 85730; 86592; 86850; 86900; 86901; 99464